=== PATIENT | female | born 1970 | race Caucasian/White ===

== ENCOUNTER 2019-02-06 05:38 | Inpatient (IN) | payer OTHER ==
[2019-01-31 17:13] VITALS: BMI 42.2
[~2019-02-06] VITALS: Ht 160 cm; Wt 108.0 kg
[2019-02-06] VITALS (42 sets, daily range): BP systolic 103–156; BP diastolic 55–86; PULSE 69–110; RESP 12–32; Ht 160 cm; Wt 108.0 kg
[2019-02-06] MEDS ORDERED: CEFAZOLIN 2 GM/50 ML (PMX) 50 ML IVPB SCH ×2 (06:00→06:31)
--- NOTE | 2019-02-06 06:44 | HPN ---
Date/Time of Note Date/Time of Note DATE: 02/06/19 TIME: 06:44 Interval H&P Admission Note Pt. seen H&P reviewed: No system changes LATHA MONTERO MD Feb 06, 2019 06:44
[2019-02-06] MEDS ORDERED: HYDR-3601 ORAL (06:56)
[2019-02-06] MEDS ORDERED: MINO100C ORAL (06:56)
[2019-02-06] MEDS ORDERED: VALA500T ORAL (06:56)
--- NOTE | 2019-02-06 07:03 | PREAC ---
Date/Time of Note Date/Time of Note DATE: 02/06/19 TIME: 07:02 Anesthesia Eval and Record Evaluation Time Pre-Procedure Interview DATE: 02/06/19 TIME: 07:02 Age 48 Sex female NPO: 8 hrs Preoperative diagnosis stenosis lumbar Planned procedure l4 LAMINECTOMY Past Medical History Past Medical History: None GI: Morbid obesity Surgery & Anesthesia Issues No known issue Meds Anticoagulation: No Beta Alvaro within 24 hr: No Reason Beta Alvaro not given: Pt. not on B-Alvaro Reported Medications Hydrocodone Bit-Acetaminophen (Hydrocodone Bit-APAP) 5-325MG Tablet, 1 TAB ORAL Q6 02/06/19 Minocycline Hcl* (Dynacin*) 100 Mg Capsule, 1 CAP ORAL BID 02/06/19 valAcyclovir Hcl* (valACYclovir Hcl*) 500 Mg Tablet, 1 TAB ORAL DAILY 02/06/19 Current Medications Cefazolin Sodium/ Dextrose 50 ml @ 100 mls/hr ONCE IVPB Last administered on 02/06/19at 06:42; Admin Dose 100 MLS/HR; Start 02/06/19 at 06:31; Stop 02/06/19 at 18:00 Meds reviewed: Yes Allergies Coded Allergies: Sulfa (Sulfonamide Antibiotics) (Verified Allergy, Severe, rash, 01/31/19) Allergies Reviewed: Yes Labs/Studies Labs Reviewed: Reviewed by anesthesiologist Blood Bank Test 02/06/19 05:23 Blood Product Summary Counts test: Negative Pre-procedure Exam Last vitals Vital Signs Date Temp Pulse Resp B/P (MAP) Pulse Ox O2 O2 Flow FiO2 Time Delivery Rate 02/06/19 97.4 69 16 153/83 100 Room Air 06:50 (106) Airway: Adequate mouth opening, Adequate thyromental dist Mallampati: Mallampati IV Teeth: Normal Lung: Normal Heart: Normal ASA Physical Status ASA physical status: 2 Emergency: None Pre-operative Attestations Prior to commencing anesthesia and surgery, the patient was re-evaluated, there was verification of: *The patient's identity *The results of appropriate recent lab work and preoperative vital signs *The above evaluation not changing prior to induction *Anesthetic plan, risk benefits, alternative and complications discussed with patient/family; questions answered; patient/family understands, accepts and wishes to proceed. JUDITH VANCE DO Feb 06, 2019 07:03
[2019-02-06] MEDS ORDERED: MIDAZOLAM 1 MG/ML 2 ML INJ ONE (07:05)
[2019-02-06] MEDS ORDERED: SUCCINYLCHOLINE CHLORIDE 100 MG/5 ML SYG IV ONE (07:05)
[2019-02-06] MEDS ORDERED: PROPOFOL 20 ML ONE (07:05)
[2019-02-06] MEDS ORDERED: LIDOCAINE 1% (MDV) 20 ML INJ ONE (07:06)
[2019-02-06] MEDS ORDERED: DEXAMETHASONE 4 MG/ML 5 ML INJ ONE (07:19)
[2019-02-06] MEDS ORDERED: FAMOTIDINE 20 MG INJ ONE (07:19)
[2019-02-06] MEDS ORDERED: ONDANSETRON 4 MG INJ ONE (07:19)
[2019-02-06] MEDS ORDERED: BUPIVACAINE 0.25% (MPF) 30 ML INJ ONE (07:47)
[2019-02-06] MEDS ORDERED: POLYMYXIN/BACITRACIN 1L IRRIG ONE (07:47)
[2019-02-06] MEDS ORDERED: ROCURONIUM 50 MG INJ ONE (08:37)
[2019-02-06] MEDS ORDERED: THROMBIN 5000 UNIT VIAL ONE (08:50)
[2019-02-06] MEDS ORDERED: SUGAMMADEX SODIUM 200 MG/2 ML VIAL IV ONE (09:28)
--- NOTE | 2019-02-06 10:15 | SIPON ---
Date/Time of Note Date/Time of Note DATE: 02/06/19 TIME: 10:09 Operative Report Preoperative Diagnosis Lumbar spinal stenosis at L4 Postoperative Diagnosis Same Operation/Procedure Performed Central decompressive laminectomy at L4 Excisional biopsy of intraspinal extradural lesion at L4-5 (probable ganglion cyst of the ligamentum flavum) Medial facetectomy and foraminotomy L4-5 bilaterally Cosmetic wound closure (5 cm) Lateral localizing lumbar radiographs (2) Intraoperative nerve monitoring (3 hours) Surgeon see signature line data analysis assistant MATT Cruz Anesthesia: general Estimated blood loss: 100 - 150 ml's Transfusion Required none Specimen Spinous process of L4 Intraspinal extradural cyst (probable ganglion cyst of the ligamentum flavum at L4-5) Grafts/Implants none Complications none LATHA MONTERO MD Feb 06, 2019 10:15
--- NOTE | 2019-02-06 10:16 | PAC ---
Date/Time of Note Date/Time of Note DATE: 02/06/19 TIME: 10:15 Post-Anesthesia Notes Post-Anesthesia Note Last documented vital signs Vital Signs Date Temp Pulse Resp B/P (MAP) Pulse Ox O2 O2 Flow FiO2 Time Delivery Rate 02/06/19 98 70 16 140/65 100 Room Air 1015 Activity: WNL Respiratory function: WNL Cardiovascular function: WNL Mental status: Baseline Pain reasonably controlled: Yes Hydration appropriate: Yes Nausea/Vomiting absent: Yes JUDITH VANCE DO Feb 06, 2019 10:16
[2019-02-06] MEDS ORDERED: HYDROmorphONE 1 MG/5 ML IV SYRINGE IV ONE (10:18)
[2019-02-06] MEDS: HYDROmorphONE 0.2 MG/ML PCA IV SCH ×2 (10:27→15:25)
[2019-02-06] MEDS ORDERED: HYDROCODONE/APAP (5/325) TAB PO PRN (10:30)
[2019-02-06] MEDS ORDERED: PROCHLORPERAZINE 10 MG TAB PO PRN (10:30)
[2019-02-06] MEDS ORDERED: ACETAMINOPHEN 325 MG TAB PO PRN (10:30)
[2019-02-06] MEDS ORDERED: HYDROmorphONE 1 MG/5 ML IV SYRINGE IV PRN ×3 (10:30)
[2019-02-06] MEDS ORDERED: ZOLPIDEM 5 MG TAB PO PRN (10:30)
[2019-02-06] MEDS ORDERED: NACL 0.9% 3 ML SYG IV SCH (10:30)
[2019-02-06] MEDS ORDERED: CEPASTAT LOZENGE MT PRN (10:30)
[2019-02-06] MEDS ORDERED: NALOXONE (0.4 MG/ML) INJ IV PRN (10:30)
[2019-02-06] MEDS ORDERED: TRIMETHOBENZAMIDE 100 MG/ML VIAL IM PRN (10:30)
[2019-02-06] MEDS ORDERED: BETHANECHOL 25 MG TAB PO PRN (10:30)
[2019-02-06] MEDS ORDERED: DIAZEPAM 5 MG/ML SYG IM PRN (10:30)
[2019-02-06] MEDS ORDERED: AL HYDROX/MG HYDROX/SIMETH 30 ML CUP PO PRN (10:30)
--- NOTE | 2019-02-06 11:38 | OPR ---
DATE OF OPERATION: 02/06/2019 PREOPERATIVE DIAGNOSES: 1. Lumbar spinal stenosis at L4. POSTOPERATIVE DIAGNOSES: 1. Lumbar spinal stenosis at L4. 2. 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 OPERATIONS PERFORMED: 1. Central decompressive laminectomy at L4. 2. Excisional biopsy of an intraspinal extradural lesion at L4-5 (probable ganglion cyst of the liga mentum flavum). 3. Medial facetectomy and foraminotomy at L4-L5 bilaterally. 4. Cosmetic wound closure (5 cm). 5. Lateral localized lumbar radiographs (2). 6. Intraoperative nerve monitoring (3 hours). SURGEON: Eliezer Fiugeroa M.D. PICTURE FRAMES INSPECTOR: MATT Cruz ANESTHESIA: General endotracheal. ANESTHESIOLOGIST: Dr. Stapleton. ESTIMATED BLOOD LOSS: 120 mL, none replaced. DRAINS: Two medium Hemovac drains employed. COMPLICATIONS: None. PERTINENT HISTORY AND PHYSICAL: This is a 48-year-old female with persistent back and bilateral leg pain which has been unrelieved by extensive conservative management. She has undergone a number of d iagnostic studies including an MRI of the lumbar spine, which demonstrated a moderately severe spinal stenosis at L4. Treatment options were discussed with the patient, she elected to proceed with surg naomi. OPERATIVE FINDINGS AT SURGERY: A moderately severe central stenosis at L4 with moderately severe lat eral recess stenosis at L4-L5 was confirmed as was an intraspinal extradural lesion at L4-5 in the mi dline, which appeared to be a ganglion cyst within the ligamentum flavum measuring approximately 8 mm in diameter. The baseline intraoperative nerve monitoring revealed decrease in the left L4 potentia l of 20%, the left L5 potential of 60%, the right L5 potential of 40% and the S1 potentials bilateral ly of 20%. These all returned to normal at the completion of the surgery. OPERATIVE PROCEDURE: With the patient in supine position after satisfactory induction of general end otracheal anesthesia by Dr. Stapleton. The patient was turned to the prone kneeling position over the [place] frame. All pressure points were carefully padded. The back was prepped and draped in usua l sterile fashion. Athrombic pumps were applied to the legs below the knees to prevent venous stasis during and after procedure. An indwelling Chavira catheter was also placed preoperative to facilitate bladder drainage during and after the procedure. 2 spinal needles placed next to what was felt to b e the L4 and L5 spinous processes, lateral roentgenogram was taken, which confirmed anatomic localiza tion. A 5 cm incision then carried midline from L3 to L5 through skin and subcutaneous tissue to husam p fascia after skin was infiltrated with 0.25% Marcaine without epinephrine for postoperative analges ia. Superficial retractors were placed and hemostasis secured with electrocautery. Throughout the p rocedure, copious amounts of antibacterial irrigating solution used to periodically irrigate the woun d. The fascia was incised in midline with a hot knife and a bilateral subperiosteal dissection rich ed out from L3 to L5. Deep retractors were placed and deep hemostasis secured with electrocautery. A second intraoperative radiograph was taken with David clamp was placed in what was felt to be the spinous process of L4 and this was confirmed with second x-ray. A central decompressive laminectomy was then carried out using a Alejandra right-angle bone rongeur, Leksell rongeur, Kerrison punches and curettes. Ligamentum flavum was excised with sharp dissection. The operating microscope was then mo blanca into place. At this point, a round lesion was identified within the ligamentum flavum just above the superior aspect of the lamina of L5. It was excised and sent to laboratory for pathologic study had the appearance of a ganglion cyst emanating from the ligamentum flavum. A medial facetectomy an d foraminotomy was then accomplished using small hand osteotome, mallet, Kerrison punches and curette s. The L5 nerve roots were decompressed throughout their intraspinal course. The anesthesiologist t hen asked to perform a Valsalva maneuver at 40 mmHg and no spinal fluid leak was noted. The wound wa s then closed in layers over 2 medium Hemovac drains, one below the fascia, one above the fascia, usi ng #1 Stratafix suture in deep paralumbar musculature and deep fascia of back, 2-0 Stratafix sutures in subcutaneous tissue, and a 4-0 Vicryl subcuticular cosmetic closing suture on the skin. Dermabond and sterile compressive dressings were applied. The patient tolerated procedure well, was then turn ed to the supine position onto her bed and extubated by Dr. Stapleton. She was transported to the rec overy room in satisfactory condition. At the conclusion of procedure, sponge, instrument, and needle counts were all correct. NEED FOR DANDY TENDER: During this spinal surgical procedure, my pizza hut assistant was used to retract and protect the spinal nerves and dural sac. My pizza hut assistant also employed the suction catheters to ev acuate blood from the surgical field to improve visualization of the neural structures. The assistan t was medically necessary to facilitate the completion of the surgery in a safe and expeditious [facility] r. [facility] regulations, as well as hospital bylaws, preclude the use of non-licensed [facility] care personnel such as operating room technicians, to perform these functions. Throughout the procedure, neural monitoring was carried out by [employer] including EMG, SSEP a nd MEP monitoring of the L3, L4, L5 and S1 nerve roots bilaterally along with spinal cord potentials. These were interpreted in real time by Dr. Sen Huerta. Dictated By: ELIEZER FIGUEROA MD TM/NTS Conf#: [id number] DID#: [id number] CC: OLE LIVINGSTON MD; ELIEZER FIGUEROA MD;*End*
[2019-02-06] MEDS: CEFAZOLIN 1 GM/50 ML (PMX) 50 ML IVPB SCH ×3 (11:40→23:11)
[2019-02-06] MEDS: ONDANSETRON 4 MG INJ IV PRN ×2 (11:41→17:28)
--- NOTE | 2019-02-06 13:34 | CONS ---
Assessment/Plan Assessment/Plan Problems: (1) Acne vulgaris Status: Chronic Comment: Cont. minocycline 100 mg bid (2) Herpes simplex Status: Chronic Comment: Cont. daily suppressive dose of valacyclovir (3) Lumbar spinal stenosis Status: Resolved Comment: Per primary team (4) Status post lumbar laminectomy Status: Acute Comment: Doing well POD#0. PT and pain management per primary team. Will follow and monitor for any medical issues and treat should they arise. Pt. is currently medically stable for d/c whenever primary team feels she is ready. Consultation Date/Type/Reason Admit Date/Time Feb 06, 2019 at 05:38 Date of Consultation: Feb 06, 2019 Type of Consult Medicine Reason for Consultation Medical Management Requesting Provider: LATHA MONTERO Date/Time of Note DATE: 02/06/19 TIME: 13:29 Hx of Present Illness 48 y/o C F w/o sig. PMH in [facility] until 1 1/2 y. ago when she began to develop gradual pain in her lower back radiating to legs. Pain has worsened over time. Pt. has seen 4 doctors for this. Has done extensive conservative management including PT and epidurals. Pain could not be relieved. MRI showed L4 spinal stenosis and an epidural compressive lesion. Pt. sought care of Dr. Montero who decided that this should now be surgical. Pt. s/p scheduled lumbar lami today w/ excisional biopsy of epidural mass. Pt. is POD#0 and doing well. Constitutional: no complaints, improved Eyes: no complaints ENT: no complaints Respiratory: no complaints Cardiovascular: no complaints Gastrointestinal: no complaints Genitourinary: no complaints Musculoskeletal: no complaints Neurologic: no complaints Past Medical History Medical History: no pertinent history Home Meds Reported Medications Hydrocodone Bit-Acetaminophen (Hydrocodone Bit-APAP) 5-325MG Tablet, 1 TAB ORAL Q6 02/06/19 Minocycline Hcl* (Dynacin*) 100 Mg Capsule, 1 CAP ORAL BID 02/06/19 valAcyclovir Hcl* (valACYclovir Hcl*) 500 Mg Tablet, 1 TAB ORAL DAILY 02/06/19 Medications Current Medications Cefazolin Sodium/ Dextrose 50 ml @ 100 mls/hr ONCE IVPB Last administered on 02/06/19at 06:42; Admin Dose 100 MLS/HR; Start 02/06/19 at 06:31; Stop 02/06/19 at 18:00 Dextrose/Sodium Chloride 1,000 ml @ 100 mls/hr Q10H IV ; Start 02/06/19 at 10:04 Acetaminophen/ Hydrocodone Bitart ([place] (5/325)) 1 tab Q4H PRN PO .PAIN 1-5; Start 02/06/19 at 10:30 Acetaminophen/ Hydrocodone Bitart ([place] (5/325)) 2 tab Q4H PRN PO .PAIN 6-10; Start 02/06/19 at 10:30 Cefazolin Sodium 50 ml @ 100 mls/hr Q6 IVPB Last administered on 02/06/19at 11:40; Admin Dose 100 MLS/HR; Start 02/06/19 at 12:00; Stop 02/07/19 at 06:29 Zolpidem Tartrate (Ambien) 5 mg HS PRN PO .INSOMNIA; Start 02/06/19 at 10:30 Prochlorperazine (Compazine) 10 mg Q4H PRN PO NAUSEA/VOMITING; Start 02/06/19 at 10:30 Trimethobenzamide HCl (Tigan) 200 mg Q4H PRN IM NAUSEA/VOMITING; Start 02/06/19 at 10:30 Ondansetron HCl (Zofran Inj) 4 mg Q6H PRN IV NAUSEA/VOMITING Last administered on 02/06/19at 11:41; Admin Dose 4 MG; Start 02/06/19 at 10:30 Al Hydrox/Mg Hydrox/Simethicone (Mag-Al Plus) 15 ml Q4H PRN PO .CONSTIPATION; Start 02/06/19 at 10:30 Docusate Sodium (Colace) 100 mg BID PO ; Start 02/07/19 at 09:00 Acetaminophen (Tylenol Tab) 650 mg Q4H PRN PO TEMP GREATER THAN 101F OR TEMPLETON; Start 02/06/19 at 10:30 Ascorbic Acid (Vitamin C) 1,000 mg BID PO ; Start 02/07/19 at 09:00 Ferrous Sulfate (Ferrous Sulfate (Ec)) 325 mg TID PO ; Start 02/07/19 at 09:00 Ranitidine HCl (Zantac) 150 mg BID PO ; Start 02/06/19 at 21:00 Diazepam (Valium) 5 mg Q4H PRN PO .MUSCLE SPASM; Start 02/06/19 at 10:30 Diazepam (Valium) 5 mg Q4H PRN IM .MUSCLE SPASM; Start 02/06/19 at 10:30 Phenol (Cepastat Lozenge) 1 lozenge PRN PRN MT .SORE THROAT; Start 02/06/19 at 10:30 Bethanechol Chloride (Urecholine) 25 mg PRN PRN PO .UNABLE TO VOID; Start 02/06/19 at 10:30 Diphenhydramine HCl (Benadryl) 50 mg Q6H PRN PO .PRURITUS; Start 02/06/19 at 10:30 IV Flush (NS 3 ml) 3 ml PER PROTOCOL IV ; Start 02/06/19 at 10:30 Hydromorphone HCl (Dilaudid MEDICAL AND SCIENTIFIC ILLUSTRATOR) Q4PCA IV Last administered on 02/06/19at 10:27; Admin Dose 6 MG; Start 02/06/19 at 10:30 Naloxone HCl (Narcan) 0.2 mg Q2M PRN IV RR 8 BREATHS/MIN OR LESS; Start 02/06/19 at 10:30 Hydromorphone HCl (Dilaudid) 0.2 mg PACU PRN IV MILD PAIN 1-3; Start 02/06/19 at 10:30; Stop 02/06/19 at 16:00 Hydromorphone HCl (Dilaudid) 0.4 mg PACU PRN IV MOD PAIN 4-6 Last administered on 02/06/19at 10:31; Admin Dose 0.4 MG; Start 02/06/19 at 10:30; Stop 02/06/19 at 16:00 Hydromorphone HCl (Dilaudid) 0.6 mg PACU PRN IV SEVERE PAIN 7-10; Start 02/06/19 at 10:30; Stop 02/06/19 at 16:00 Minocycline HCl (Minocin) 100 mg BID PO ; Start 02/06/19 at 21:00 Valacyclovir HCl (Valtrex) 500 mg DAILY PO ; Start 02/07/19 at 09:00; Status UNV Allergies: Coded Allergies: Sulfa (Sulfonamide Antibiotics) (Verified Allergy, Severe, rash, 01/31/19) Past Surgical History Past Surgical Hx: appendectomy, other (B carpal tunnel release, BLE varicose vein stripping) Family History Significant Family History: diabetes (mother) Social History b. [place], some college, works as network operations manager for [employer] single, 2 children Alcohol Use: rarely Smoking Status: Never smoker Drug Use: none Exam/Review of Systems Exam Vitals VS - Last 72 Hours, by Label Date Temp Pulse Resp B/P (MAP) Pulse Ox O2 O2 Flow FiO2 Time Delivery Rate 02/06/19 82 14 121/70 99 Nasal 2.0 13:02 (87) Cannula 02/06/19 90 21 124/69 98 Nasal 2.0 12:32 (87) Cannula 02/06/19 90 17 126/67 96 Nasal 2.0 12:07 (86) Cannula 02/06/19 90 17 121/71 95 Nasal 2.0 11:52 (88) Cannula 02/06/19 88 12 133/73 94 Nasal 2.0 11:37 (93) Cannula 02/06/19 90 17 121/68 95 Nasal 2.0 11:22 (85) Cannula 02/06/19 89 14 127/77 97 Nasal 2.0 11:07 (94) Cannula 02/06/19 90 16 128/79 96 Nasal 2.0 11:02 (95) Cannula 02/06/19 90 14 138/71 96 Nasal 2.0 10:57 (93) Cannula 02/06/19 90 17 136/75 97 Nasal 2.0 10:52 (95) Cannula 02/06/19 86 14 140/81 97 Nasal 2.0 10:47 (100) Cannula 02/06/19 88 19 148/86 100 Nasal 2.0 10:42 (106) Cannula 02/06/19 86 18 148/75 100 Nasal 2.0 10:37 (99) Cannula 02/06/19 86 17 138/82 97 Nasal 2.0 10:32 (100) Cannula 02/06/19 14 10:31 02/06/19 92 20 147/81 79 Nasal 2.0 10:27 (103) Cannula 02/06/19 92 13 143/80 100 Nasal 4.0 10:22 (101) Cannula 02/06/19 94 23 156/75 100 Nasal 4.0 10:17 (102) Cannula 02/06/19 98.8 10:13 02/06/19 96 16 153/80 100 Nasal 4.0 10:12 (104) Cannula 02/06/19 95 19 152/79 100 Mask 8.0 10:07 (103) 02/06/19 98 15 148/68 100 Mask 8.0 10:02 (94) 02/06/19 104 20 149/83 100 Mask 8.0 09:57 (105) 02/06/19 Simple 8.0 09:53 Mask 02/06/19 98.8 110 24 140/55 100 Mask 8.0 09:53 (83) 02/06/19 97.4 69 16 153/83 100 Room Air 06:50 (106) Vital Signs Date Temp Pulse Resp B/P (MAP) Pulse Ox O2 O2 Flow FiO2 Time Delivery Rate 02/06/19 82 14 121/70 99 Nasal 2.0 13:02 (87) Cannula 02/06/19 98.8 10:13 Constitutional: alert, oriented, obese Psych: no complaints, nl mood/affect Eyes: nl conjunctiva, EOMI, nl lids, nl sclera, PERRL ENMT: nl external ears & nose, mucosa pink and moist Neck: supple, non-tender; No bruits, No masses, No thyromegaly Respiratory: clear to auscultation, normal air movement Cardiovascular: regular rate and rhythm, nl pulses; No edema, No murmurs/extra sounds, No rub Gastrointestinal: soft, nl liver, spleen, non-tender, bowel sounds; No mass, No rebound or guarding Musculoskeletal: nl extremities to inspection Extremities: normal pulses; No cyanosis, No clubbing, No edema Neurological: GERIATRIC NURSING ASSISTANT II-XII intact, nl mental status, nl speech, nl strength Medications Medication Current Medications Cefazolin Sodium/ Dextrose 50 ml @ 100 mls/hr ONCE IVPB Last administered on 02/06/19at 06:42; Admin Dose 100 MLS/HR; Start 02/06/19 at 06:31; Stop 02/06/19 at 18:00 Dextrose/Sodium Chloride 1,000 ml @ 100 mls/hr Q10H IV ; Start 02/06/19 at 10:04 Acetaminophen/ Hydrocodone Bitart ([place] (5/325)) 1 tab Q4H PRN PO .PAIN 1-5; Start 02/06/19 at 10:30 Acetaminophen/ Hydrocodone Bitart ([place] (5/325)) 2 tab Q4H PRN PO .PAIN 6-10; Start 02/06/19 at 10:30 Cefazolin Sodium 50 ml @ 100 mls/hr Q6 IVPB Last administered on 02/06/19at 11:40; Admin Dose 100 MLS/HR; Start 02/06/19 at 12:00; Stop 02/07/19 at 06:29 Zolpidem Tartrate (Ambien) 5 mg HS PRN PO .INSOMNIA; Start 02/06/19 at 10:30 Prochlorperazine (Compazine) 10 mg Q4H PRN PO NAUSEA/VOMITING; Start 02/06/19 at 10:30 Trimethobenzamide HCl (Tigan) 200 mg Q4H PRN IM NAUSEA/VOMITING; Start 02/06/19 at 10:30 Ondansetron HCl (Zofran Inj) 4 mg Q6H PRN IV NAUSEA/VOMITING Last administered on 02/06/19at 11:41; Admin Dose 4 MG; Start 02/06/19 at 10:30 Al Hydrox/Mg Hydrox/Simethicone (Mag-Al Plus) 15 ml Q4H PRN PO .CONSTIPATION; Start 02/06/19 at 10:30 Docusate Sodium (Colace) 100 mg BID PO ; Start 02/07/19 at 09:00 Acetaminophen (Tylenol Tab) 650 mg Q4H PRN PO TEMP GREATER THAN 101F OR [place]PLETON; Start 02/06/19 at 10:30 Ascorbic Acid (Vitamin C) 1,000 mg BID PO ; Start 02/07/19 at 09:00 Ferrous Sulfate (Ferrous Sulfate (Ec)) 325 mg TID PO ; Start 02/07/19 at 09:00 Ranitidine HCl (Zantac) 150 mg BID PO ; Start 02/06/19 at 21:00 Diazepam (Valium) 5 mg Q4H PRN PO .MUSCLE SPASM; Start 02/06/19 at 10:30 Diazepam (Valium) 5 mg Q4H PRN IM .MUSCLE SPASM; Start 02/06/19 at 10:30 Phenol (Cepastat Lozenge) 1 lozenge PRN PRN MT .SORE THROAT; Start 02/06/19 at 10:30 Bethanechol Chloride (Urecholine) 25 mg PRN PRN PO .UNABLE TO VOID; Start 02/06/19 at 10:30 Diphenhydramine HCl (Benadryl) 50 mg Q6H PRN PO .PRURITUS; Start 02/06/19 at 10:30 IV Flush (NS 3 ml) 3 ml PER PROTOCOL IV ; Start 02/06/19 at 10:30 Hydromorphone HCl (Dilaudid MEDICAL AND SCIENTIFIC ILLUSTRATOR) Q4PCA IV Last administered on 02/06/19at 10:27; Admin Dose 6 MG; Start 02/06/19 at 10:30 Naloxone HCl (Narcan) 0.2 mg Q2M PRN IV RR 8 BREATHS/MIN OR LESS; Start 02/06/19 at 10:30 Hydromorphone HCl (Dilaudid) 0.2 mg PACU PRN IV MILD PAIN 1-3; Start 02/06/19 at 10:30; Stop 02/06/19 at 16:00 Hydromorphone HCl (Dilaudid) 0.4 mg PACU PRN IV MOD PAIN 4-6 Last administered on 02/06/19at 10:31; Admin Dose 0.4 MG; Start 02/06/19 at 10:30; Stop 02/06/19 at 16:00 Hydromorphone HCl (Dilaudid) 0.6 mg PACU PRN IV SEVERE PAIN 7-10; Start 02/06/19 at 10:30; Stop 02/06/19 at 16:00 Minocycline HCl (Minocin) 100 mg BID PO ; Start 02/06/19 at 21:00 Valacyclovir HCl (Valtrex) 500 mg DAILY PO ; Start 02/07/19 at 09:00; Status OLE NUÑEZ MD Feb 06, 2019 13:34
[2019-02-06] MEDS: DEXTROSE 5%-0.45% NACL 1,000 ML IV SCH ×2 (16:58→20:04)
[2019-02-06] MEDS: RANITIDINE 150 MG TAB PO SCH (20:10)
[2019-02-06] MEDS: MINOCYCLINE 100 MG CAP PO SCH (21:00)
[2019-02-06] MEDS: HYDROCODONE/APAP (5/325) TAB PO PRN (23:14)
[2019-02-07] MEDS: DIPHENHYDRAMINE 50 MG CAP PO PRN ×2 (01:26→10:36)
[2019-02-07] MEDS: DEXTROSE 5%-0.45% NACL 1,000 ML IV SCH ×2 (05:12→15:31)
[2019-02-07] MEDS: CEFAZOLIN 1 GM/50 ML (PMX) 50 ML IVPB SCH (05:14)
[2019-02-07] MEDS: HYDROmorphONE 0.2 MG/ML PCA IV SCH (06:11)
[2019-02-07] MEDS: HYDROCODONE/APAP (5/325) TAB PO PRN (06:15)
--- NOTE | 2019-02-07 07:27 | PN ---
Date/Time of Note Date/Time of Note DATE: 02/07/19 TIME: 07:24 Assessment/Plan Lines/Catheters IV Catheter Type (from Nrsg): Peripheral IV Chavira in Place (from Nrsg): Yes Subjective 24 Hr Interval Summary Patient is POD #1 from central decompressive laminectomy at L4 with excisional biopsy of an intraspinal extradural lesion at L4-5 (probable ganglion cyst of t he ligamentum flavum). Vital signs are stable. Hemoglobin this morning was 10.9. Hemovac drain overnight was 20cc and this was discontinued. Incision is healing well. Neurovascular structures are intact distally. Patient has not yet been up ambulating with physical therapy, therapy will work with the patient today. Plan for tor today's to discontinue Chavira and PATROL DRIVER and transition to oral pain medications. Exam/Review of Systems Vital Signs Vitals Vital Signs Date Temp Pulse Resp B/P (MAP) Pulse Ox O2 O2 Flow FiO2 Time Delivery Rate 02/07/19 14 06:15 02/06/19 98.6 85 117/63 98 Nasal 19:10 (81) Cannula 02/06/19 2.0 18:30 Intake and Output 02/06/19 02/06/19 02/07/19 1515:00 23:00 07:00 IntakeIntake Total 2000 ml 510 ml 1480 ml OutputOutput Total 210 ml 1060 ml 1720 ml BalanceBalance 1790 ml -550 ml -240 ml Results Result Diagram: 02/07/19 0432 02/07/19 0433 HILARIA PARHAM 13, 2019 07:27
[2019-02-07 07:42] VITALS: BP 106/62; PULSE 71; RESP 16
[2019-02-07] MEDS ORDERED: BETHANECHOL 25 MG TAB PO PRN (08:00)
[2019-02-07] MEDS: MINOCYCLINE 100 MG CAP PO SCH ×2 (09:00→21:00)
[2019-02-07] MEDS: valACYclovir 500 MG TAB PO SCH (09:17)
[2019-02-07] MEDS: DOCUSATE SODIUM 100 MG CAP PO SCH ×2 (09:17→22:02)
[2019-02-07] MEDS: ASCORBIC ACID 500 MG TAB PO SCH ×2 (09:18→22:02)
[2019-02-07] MEDS: FERROUS SULFATE (EC) 325 MG TAB PO SCH ×3 (09:18→22:02)
[2019-02-07] MEDS: RANITIDINE 150 MG TAB PO SCH ×2 (09:18→22:01)
[2019-02-07] MEDS: DIAZEPAM 5 MG TAB PO PRN ×2 (09:19→22:05)
[2019-02-07 15:31] VITALS: BP 109/59; PULSE 84; RESP 18
[2019-02-07] MEDS: HYDROCODONE/APAP (10/325) TAB PO PRN ×2 (17:19→18:05)
--- NOTE | 2019-02-07 17:46 | CONS ---
Assessment/Plan Assessment/Plan Problems: (1) Acne vulgaris Status: Chronic Comment: Cont. home minocycline. (2) Herpes simplex Status: Chronic Comment: Cont. home valacyclovir (3) Status post lumbar laminectomy Status: Acute Comment: Pain control not adequate. Pt. to d/w primary team re: increasing dose or intensity of pain relief. O/w doing well POD#1. Ambulating. From medical standpoint, pt. is ok for d/c when cleared by primary team. Consultation Date/Type/Reason Admit Date/Time Feb 06, 2019 at 05:38 Initial Consult Date 02/06/19 Type of Consult Medicine Reason for Consultation Medical Management Requesting Provider: LATHA MONTERO MD Date/Time of Note DATE: 02/07/19 TIME: 17:43 24 HR Interval Summary Constitutional: no complaints; No improved Detailed Summary Respiratory: no complaints Cardiovascular: no complaints Gastrointestinal: no complaints Genitourinary: no complaints Musculoskeletal: back pain (not controlled by standard oral pain meds; however, no longer radiating down thighs; ambulating w/ PT) Neurologic: no complaints Exam/Review of Systems Exam Vitals VS - Last 72 Hours, by Label Date Temp Pulse Resp B/P (MAP) Pulse Ox O2 O2 Flow FiO2 Time Delivery Rate 02/07/19 98.0 84 18 109/59 98 Room Air 15:31 (76) 02/07/19 98.2 71 16 106/62 96 Room Air 07:42 (77) 02/07/19 14 06:15 02/07/19 15 00:00 02/06/19 14 20:00 02/06/19 98.6 85 20 117/63 98 Nasal 19:10 (81) Cannula 02/06/19 85 16 117/63 99 Nasal 2.0 18:30 (81) Cannula 02/06/19 73 16 122/64 99 Nasal 2.0 17:30 (83) Cannula 02/06/19 89 16 127/69 99 Nasal 2.0 17:00 (88) Cannula 02/06/19 89 16 121/62 99 Nasal 2.0 16:30 (81) Cannula 02/06/19 82 16 116/61 99 Nasal 2.0 16:15 (79) Cannula 02/06/19 85 16 121/58 99 Nasal 2.0 16:00 (79) Cannula 02/06/19 16 16:00 02/06/19 98.3 79 18 112/58 95 Nasal 15:46 (76) Cannula 02/06/19 Nasal 2.0 15:33 Cannula 02/06/19 98.2 82 12 110/58 97 Nasal 2.0 15:32 (75) Cannula 02/06/19 82 12 110/58 97 Nasal 2.0 15:31 (75) Cannula 02/06/19 18 15:26 02/06/19 86 14 107/64 97 Nasal 2.0 15:17 (78) Cannula 02/06/19 84 15 110/60 98 Nasal 2.0 15:02 (77) Cannula 02/06/19 86 23 103/64 99 Nasal 2.0 14:47 (77) Cannula 02/06/19 86 14 103/67 98 Nasal 2.0 14:32 (79) Cannula 02/06/19 84 13 105/58 98 Nasal 2.0 14:17 (74) Cannula 02/06/19 84 13 121/60 98 Nasal 2.0 14:02 (80) Cannula 02/06/19 84 16 104/64 98 Nasal 2.0 13:47 (77) Cannula 02/06/19 86 18 126/65 97 Nasal 2.0 13:32 (85) Cannula 02/06/19 96 32 127/73 99 Nasal 2.0 13:17 (91) Cannula 02/06/19 82 14 121/70 99 Nasal 2.0 13:02 (87) Cannula 02/06/19 90 21 124/69 98 Nasal 2.0 12:32 (87) Cannula 02/06/19 90 17 126/67 96 Nasal 2.0 12:07 (86) Cannula 02/06/19 90 17 121/71 95 Nasal 2.0 11:52 (88) Cannula 02/06/19 88 12 133/73 94 Nasal 2.0 11:37 (93) Cannula 02/06/19 90 17 121/68 95 Nasal 2.0 11:22 (85) Cannula 02/06/19 89 14 127/77 97 Nasal 2.0 11:07 (94) Cannula 02/06/19 90 16 128/79 96 Nasal 2.0 11:02 (95) Cannula 02/06/19 90 14 138/71 96 Nasal 2.0 10:57 (93) Cannula 02/06/19 90 17 136/75 97 Nasal 2.0 10:52 (95) Cannula 02/06/19 86 14 140/81 97 Nasal 2.0 10:47 (100) Cannula 02/06/19 88 19 148/86 100 Nasal 2.0 10:42 (106) Cannula 02/06/19 86 18 148/75 100 Nasal 2.0 10:37 (99) Cannula 02/06/19 86 17 138/82 97 Nasal 2.0 10:32 (100) Cannula 02/06/19 14 10:31 02/06/19 92 20 147/81 79 Nasal 2.0 10:27 (103) Cannula 02/06/19 92 13 143/80 100 Nasal 4.0 10:22 (101) Cannula 02/06/19 94 23 156/75 100 Nasal 4.0 10:17 (102) Cannula 02/06/19 98.8 10:13 02/06/19 96 16 153/80 100 Nasal 4.0 10:12 (104) Cannula 02/06/19 95 19 152/79 100 Mask 8.0 10:07 (103) 02/06/19 98 15 148/68 100 Mask 8.0 10:02 (94) 02/06/19 104 20 149/83 100 Mask 8.0 09:57 (105) 02/06/19 Simple 8.0 09:53 Mask 02/06/19 98.8 110 24 140/55 100 Mask 8.0 09:53 (83) 02/06/19 97.4 69 16 153/83 100 Room Air 06:50 (106) Vital Signs Date Temp Pulse Resp B/P (MAP) Pulse Ox O2 O2 Flow FiO2 Time Delivery Rate 02/07/19 98.0 84 18 109/59 98 Room Air 15:31 (76) 02/06/19 2.0 18:30 Intake and Output 02/06/19 02/06/19 02/07/19 1515:00 23:00 07:00 IntakeIntake Total 2000 ml 510 ml 1480 ml OutputOutput Total 210 ml 1075 ml 1720 ml BalanceBalance 1790 ml -565 ml -240 ml Constitutional: alert, oriented, obese Psych: no complaints, nl mood/affect Respiratory: clear to auscultation, normal air movement Cardiovascular: regular rate and rhythm, nl pulses; No edema, No murmurs/extra sounds, No rub Gastrointestinal: soft, nl liver, spleen, non-tender, bowel sounds; No mass, No rebound or guarding Musculoskeletal: nl extremities to inspection Extremities: normal pulses; No cyanosis, No clubbing, No edema Neurological: [employer] II-XII intact, nl mental status, nl speech, nl strength Results Result Diagram: 02/07/19 0432 02/07/19 0433 Results 24hrs Laboratory Tests Test 02/07/19 04:32 02/07/19 04:33 02/07/19 07:15 02/07/19 09:10 Hemoglobin 10.9 L Hematocrit 33.4 L Sodium Level 139 Potassium Level 3.6 Chloride Level 105 Carbon Dioxide 27 Level Anion Gap 7 Blood Urea 9 Nitrogen Creatinine 0.61 Est Glomerular > 60 Filtrat Rate mL/min Glucose Level 112 Calcium Level 8.5 Lab Scanned Report REFERENCE LAB Urine Color STRAW Urine Clarity CLEAR Urine pH 6.0 Urine Specific 1.009 [place] Urine Ketones NEGATIVE Urine Nitrite NEGATIVE Urine Bilirubin NEGATIVE Urine Urobilinogen NEGATIVE Urine Leukocyte TRACE A Esterase Urine Microscopic 1 RBC Urine Microscopic 3 WBC Urine Bacteria FEW A Urine Mucus FEW A Urine Hemoglobin 1+ H Urine Glucose NEGATIVE Urine Total NEGATIVE Protein Medications Medication Current Medications Dextrose/Sodium Chloride 1,000 ml @ 100 mls/hr Q10H IV Last administered on 02/07/19at 05:12; Admin Dose 100 MLS/HR; Start 02/06/19 at 10:04 Zolpidem Tartrate (Ambien) 5 mg HS PRN PO .INSOMNIA; Start 02/06/19 at 10:30 Prochlorperazine (Compazine) 10 mg Q4H PRN PO NAUSEA/VOMITING; Start 02/06/19 at 10:30 Trimethobenzamide HCl (Tigan) 200 mg Q4H PRN IM NAUSEA/VOMITING; Start 02/06/19 at 10:30 Ondansetron HCl (Zofran Inj) 4 mg Q6H PRN IV NAUSEA/VOMITING Last administered on 02/06/19at 17:28; Admin Dose 4 MG; Start 02/06/19 at 10:30 Al Hydrox/Mg Hydrox/Simethicone (Mag-Al Plus) 15 ml Q4H PRN PO .CONSTIPATION; Start 02/06/19 at 10:30 Docusate Sodium (Colace) 100 mg BID PO Last administered on 02/07/19at 09:17; Admin Dose 100 MG; Start 02/07/19 at 09:00 Acetaminophen (Tylenol Tab) 650 mg Q4H PRN PO TEMP GREATER THAN 101F OR [place]; Start 02/06/19 at 10:30 Ascorbic Acid (Vitamin C) 1,000 mg BID PO Last administered on 02/07/19 09:18; Admin Dose 1,000 MG; Start 02/07/19 at 09:00 Ferrous Sulfate (Ferrous Sulfate (Ec)) 325 mg TID PO Last administered on 02/07/19 13:19; Admin Dose 325 MG; Start 02/07/19 at 09:00 Ranitidine HCl (Zantac) 150 mg BID PO Last administered on 02/07/19 09:18; Admin Dose 150 MG; Start 02/06/19 at 21:00 Diazepam (Valium) 5 mg Q4H PRN PO .MUSCLE SPASM Last administered on 02/07/19 09:19; Admin Dose 5 MG; Start 02/06/19 at 10:30 Diazepam (Valium) 5 mg Q4H PRN IM .MUSCLE SPASM; Start 02/06/19 at 10:30 Phenol (Cepastat Lozenge) 1 lozenge PRN PRN MT .SORE THROAT; Start 02/06/19 at 10:30 Diphenhydramine HCl (Benadryl) 50 mg Q6H PRN PO .PRURITUS Last administered on 02/07/19at 10:36; Admin Dose 50 MG; Start 02/06/19 at 10:30 IV Flush (NS 3 ml) 3 ml PER PROTOCOL IV ; Start 02/06/19 at 10:30 Hydromorphone HCl (Dilaudid BREAD BAKER) Q4PCA IV Last administered on 02/07/19at 06:11; Admin Dose 6 MG; Start 02/06/19 at 10:30 Naloxone HCl (Narcan) 0.2 mg Q2M PRN IV RR 8 BREATHS/MIN OR LESS; Start 02/06/19 at 10:30 Minocycline HCl (Minocin) 100 mg BID PO ; Start 02/06/19 at 21:00 Valacyclovir HCl (Valtrex) 500 mg DAILY PO Last administered on 02/07/19 09:17; Admin Dose 500 MG; Start 02/07/19 at 09:00 Bethanechol Chloride (Urecholine) 25 mg PRN PRN PO UNABLE TO VOID; Start 02/07/19 at 08:00 Acetaminophen/ Hydrocodone Bitart ([place] (10/325)) 1 tab Q6H PRN PO PAIN LEVEL 4-6 Last administered on 02/07/19at 17:19; Admin Dose 1 TAB; Start 02/07/19 at 14:30 Acetaminophen/ Hydrocodone Bitart ([place] (10/325)) 2 tab Q6H PRN PO PAIN LEVEL 7-10; Start 02/07/19 at 14:30 Miscellaneous Information (* Miscellaneous Pharmacy Order) PLEASE ANTICIPATE METHOTREX... ONCE XX ; Start 02/08/19 at 13:00; Status OLE NUÑEZ MD Feb 07, 2019 17:46
[2019-02-07 19:15] VITALS: BP 114/59; PULSE 77; RESP 20
[2019-02-08 01:45] VITALS: BP 121/62; PULSE 80; RESP 19
[2019-02-08] MEDS: HYDROCODONE/APAP (10/325) TAB PO PRN ×3 (01:45→13:51)
[2019-02-08] MEDS: DEXTROSE 5%-0.45% NACL 1,000 ML IV SCH ×2 (02:04→12:04)
[2019-02-08 02:35] VITALS: BP 130/71; PULSE 83; RESP 20
--- NOTE | 2019-02-08 07:04 | PN ---
Date/Time of Note Date/Time of Note DATE: 02/08/19 TIME: 07:03 Assessment/Plan Lines/Catheters IV Catheter Type (from Nrs): Saline Lock Chavira in Place (from Nrsg): No Subjective 24 Hr Interval Summary The patient is postop day #2 following a decompressive laminectomy at L4 with excision of an intraspinal extradural cyst. She is afebrile. She is resting comfortably. Neurovascular structures are intact distally. I anticipate she will be cleared for discharge by physical therapy later today. She has been given strict discharge precautions and instructions as well as follow-up arrangements. Exam/Review of Systems Vital Signs Vitals Vital Signs Date Temp Pulse Resp B/P (MAP) Pulse Ox O2 O2 Flow FiO2 Time Delivery Rate 02/08/19 98.8 83 20 130/71 95 Room Air 02:35 (90) 02/06/19 2.0 18:30 Intake and Output 02/07/19 02/07/19 02/08/19 1515:00 23:00 07:00 IntakeIntake Total 780 ml 620 ml 490 ml OutputOutput Total 650 ml BalanceBalance 780 ml -30 ml 490 ml Results Result Diagram: 02/07/19 0432 02/07/19 0433 LATHA MONTERO MD Feb 08, 2019 07:04
[2019-02-08 07:17] VITALS: BP 139/78; PULSE 80; RESP 19
[2019-02-08] MEDS: MINOCYCLINE 100 MG CAP PO SCH (09:00)
[2019-02-08] MEDS: RANITIDINE 150 MG TAB PO SCH (09:51)
[2019-02-08] MEDS: valACYclovir 500 MG TAB PO SCH (09:51)
[2019-02-08] MEDS: FERROUS SULFATE (EC) 325 MG TAB PO SCH ×2 (09:51→13:03)
[2019-02-08] MEDS: ASCORBIC ACID 500 MG TAB PO SCH (09:51)
[2019-02-08] MEDS: DOCUSATE SODIUM 100 MG CAP PO SCH (09:51)
== END 2019-02-08 15:10 | disposition home or self-care (01) | DRG 501 ==
LOC: REC 05:38 → MS1 15:41
PROVIDERS: ADMIT Orthopaedic Surgery; ATTEND Orthopaedic Surgery
PROC: 0MBD0ZZ Excision of Lower Spine Bursa and Ligament, Open Approach (ICD-10-PCS; 2019-02-06)
PROC: 01NB0ZZ Release Lumbar Nerve, Open Approach (ICD-10-PCS; principal; 2019-02-06 07:00)
DX: M48.061 Spinal stenosis, lumbar region without neurogenic claudication (principal); Z68.41 Body mass index [BMI] 40.0-44.9, adult; E66.01 Morbid (severe) obesity due to excess calories; E78.5 Hyperlipidemia, unspecified; L70.0 Acne vulgaris; B00.9 Herpesviral infection, unspecified; M67.48 Ganglion, other site; M43.16 Spondylolisthesis, lumbar region
CPT/HCPCS: 72020; 80048; 81001; 85014; 85018; 86850; 86900; 86901; 86920; 87086; 88304; 88311; 97110; 97116; 97162; 97530; J0690; J1100; J1170; J2250; J2405; J3010; J7042